=== PATIENT | female | born 1995 | race Caucasian/White ===

== ENCOUNTER 2019-02-01 10:19 | Inpatient (IN) | payer OTHER ==
[~2019-02-01] VITALS: Ht 160 cm; Wt 68.0 kg
[2019-02-01 10:27] VITALS: BP 141/94
--- NOTE | 2019-02-01 10:27 | NUR ---
Pt taken to bed 9.
--- NOTE | 2019-02-01 10:35 | NUR ---
BIB SELF. AAO X4 C/O RIGHT BREAST PAIN WITH REDNESS X 1 WEEK. PT WAS SEEN BY PCP AND WAS DX WITH MASTITIS AND HAS BEEN TAKING ABX SINCE SATURDAY BUT REPORTS A LOT OF PRESSURE TO RIGHT BREAST. POST 01/08/19. PT STATES CHILLS, NAUSEA, - VOMITING. ER TO EVALUATE PT.
--- NOTE | 2019-02-01 10:52 | NUR ---
Patient being evaluated by Dr. Vinson at bedside.
--- NOTE | 2019-02-01 10:55 | NUR ---
DR. DE GUZMAN BREAST EXAM AT BEDSIDE, CHAPERONED BY ME.
[2019-02-01] MEDS ORDERED: NACL 0.9% 1,000 ML IV SCH (10:57)
[2019-02-01] MEDS ORDERED: NAFCILLIN 2,000 MG in DEXTROSE 5% 100 ML IV ONE (11:00)
--- NOTE | 2019-02-01 11:10 | NUR ---
PT AAO X4. NO SIGNS AND SYMPTOMS OF DISTRESS NOTED. PT PLACED ON FULL LINER MAN. VSS.
[2019-02-01] MEDS ORDERED: NAFCILLIN 2,000 MG VIAL IV ONE (11:15)
[2019-02-01 11:27] LABS: BASOPHILS # (AUTO) 0.1 K/uL (0.00-0.22); BASOPHILS % (AUTO) 1.2 % (0.0-2.0); EOSINOPHILS # (AUTO) 0.1 K/uL (0-0.4); EOSINOPHILS % (AUTO) 0.5 % (0.0-4.0); HEMATOCRIT 39.8 % (36-48); HEMOGLOBIN 13.1 g/dL (12.0-16.0); LYMPHOCYTES # (AUTO) 1.2 K/uL (2.5-16.5); LYMPHOCYTES % (AUTO) 12.4 % (20.5-51.1); MEAN CORPUSCULAR HEMOGLOBIN 28 pg (27-31); MEAN CORPUSCULAR HGB CONC 33 g/dL (33-37); MEAN CORPUSCULAR VOLUME 83.7 fL (80-94); MONOCYTES # (AUTO) 0.6 K/uL (0.8-1.0); MONOCYTES % (AUTO) 6.3 % (1.7-9.3); NEUTROPHILS # (AUTO) 7.7 K/uL (1.8-7.7); NEUTROPHILS % (AUTO) 79.6 % (42.2-75.2); PLATELET COUNT (AUTO) 336 K/uL (140-450); RED BLOOD CELL COUNT(AUTO) 4.75 MIL/uL (4.20-5.40); RED CELL DISTRIBUTION WIDTH 14.6 % (11.6-13.7); WHITE BLOOD COUNT (AUTO) 9.7 K/uL (4.8-10.8)
--- NOTE | 2019-02-01 11:29 | NUR ---
RADIOLOGY AT BEDSIDE
--- NOTE | 2019-02-01 11:31 | NUR ---
ULTRASOUND AT BEDSIDE
[2019-02-01 11:34] LABS: ANION GAP 17.4 (8-16); CARBON DIOXIDE 24.6 mmol/L (21-32); CREATININE 0.7 mg/dL (0.6-1.3)
[2019-02-01 11:38] LABS: APPEARANCE,URINE CLEAR (CLEAR); BILIRUBIN,URINE NEGATIVE (NEGATIVE); BLOOD, URINE 1+ (NEGATIVE); COLOR,URINE YELLOW (YELLOW); LEUKOCYTE ESTERASE ,URINE 1+ (NEGATIVE); NITRITE, URINE NEGATIVE (NEGATIVE); PH,URINE 5.5 (5.0-9.0); UGLUCOSE NEGATIVE (NEGATIVE)
[2019-02-01 11:39] LABS: RBC,URINE 0-5 /HPF (0-5); WBC,URINE 0-5 /HPF (0-5)
[2019-02-01 11:49] LABS: ALBUMIN 3.7 g/dL (3.4-5.0); TOTAL BILIRUBIN 0.5 mg/dL (0.0-1.0)
--- NOTE | 2019-02-01 12:36 | NUR ---
Dr. Vinson re-evaluating patient at bedside.
[2019-02-01 13:10] VITALS: BP 107/75
--- NOTE | 2019-02-01 13:10 | NUR ---
RECEIVED ENDORSEMENT FROM ED NURSE ABDI. PATIENT IS AAOX4, SYRIAC SPEAKING. RESPIRATIONS ARE EVEN AND UNLABORED ON ROOM AIR. PATIENT DENIES PAIN AT A TOLERABLE LEVEL AT THIS TIME. LEFT AC 20G IV INTACT AND SL. PLAN OF CARE WAS REVIEWED WITH THE PATIENT. PATIENT VERBALIZED UNDERSTANDING. SAFETY MEASURES IN PLACE, CALL LIGHT WITHIN REACH.
--- NOTE | 2019-02-01 13:10 | NUR ---
Patient will be admitted to care of Dr. Cerda. Admitted to tele. Will go to room 105 a. Belongings list completed. Report to SAMIRA Dobbins.
[2019-02-01] MEDS ORDERED: DOCUSATE SODIUM 100 MG GELCAP PO PRN (13:45)
[2019-02-01] MEDS ORDERED: ACETAMINOPHEN 325 MG TAB PO PRN (13:45)
[2019-02-01] MEDS ORDERED: MORPHINE SULFATE 2 MG/ML SYR IVP PRN (13:45)
[2019-02-01] MEDS ORDERED: IBUPROFEN 600 MG TAB PO PRN (13:45)
[2019-02-01] MEDS: NACL 0.9% 1,000 ML IV SCH (14:04)
[2019-02-01 14:06] LABS: BARBITURATE, URINE NEG. ng/ml (NEG <=200); BENZODIAZEPINE, URINE NEG. ng/mL (NEG <=200); CANNABINOID, URINE NEG. ng/mL (NEG <=50); COCAINE, URINE NEG. ng/mL (NEG <=300); OPIATE, URINE NEG. ng/mL (NEG <=2000); PHENCYCLIDINE SCREEN,URINE NEG. ng/mL (NEG <=25)
[2019-02-01 14:11] LABS: PROTHROMBIN TIME 9.9 secs (10.8-13.4)
[2019-02-01 14:16] LABS: MAGNESIUM 2.1 mg/dL (1.8-2.4); THYROID STIMULATING HORMONE 0.42 uIU/mL (0.34-3.74)
--- NOTE | 2019-02-01 15:45 | NUR ---
OBTAINED BREAST PUMP FOR PATIENT FOR BREAST MILK SAMPLE. PATIENT IS RESTING IN BED. NO OTHER NEEDS AT THIS TIME, WILL CONTINUE TO MONITOR.
[2019-02-01 16:00] VITALS: BP 114/74
--- NOTE | 2019-02-01 17:04 | NUR ---
PATIENT RESTING IN BED. DENIES ANY PAIN. NO OTHER NEEDS AT THIS TIME, WILL CONTINUE TO MONITOR.
--- NOTE | 2019-02-01 19:23 | NUR ---
ENDORSED TO FIRMWARE MANAGER NURSE FOR CONTINUITY OF CARE. PATIENT IS STABLE AT THIS TIME.
--- NOTE | 2019-02-01 19:30 | NUR ---
RECEIVED BEDSIDE REPORT FROM DAY SHIFT RN, PATIENT IN BED WATCHING TV, NO SIGNS OF ACUTE DISTRESS. ON RA, V/S STABLE, NO FEVER AT THIS TIME, NOTED ABSCESS ON RIGHT BREAST, PATIENT DENIES PAIN. IV IN LEFT AC 20 G INFUSING NS AT 60 ML/HR. EXPLAINED PLAN OF CARE, CALL LIGHT WITHIN REACH.
--- NOTE | 2019-02-01 20:00 | NUR ---
DR VALLEJO AT BEDSIDE, EXAMINED PATIENT WHILE I WAS PRESENT, EXPLAINED RECOMMENDATIONS FOR SURGERY, EXPLAINED RISK AND BENEFITS, PATIENT IN AGREEMENT WITH PLAN OF CARE.
--- NOTE | 2019-02-01 21:00 | NUR ---
CONSENT FOR INCISION AND DRAINAGE SIGNED AND IN CHART
--- NOTE | 2019-02-01 22:02 | NUR ---
CALLED PHARMACY AND SPOKE WITH NASIR, ACCORDING TO HER SERGEYEN IS OKAY TO GIVEN WHILE BREAST FEEDING.
[2019-02-02] VITALS: BP 123/83
--- NOTE | 2019-02-02 00:14 | NUR ---
PRE OP CHECK LIST COMPLETED, PATIENT STARTED ON NPO STATUS
[2019-02-02] MEDS: NACL 0.9% 1,000 ML IV SCH ×2 (00:15→05:07)
--- NOTE | 2019-02-02 02:40 | NUR ---
PATIENT RESTING IN BED, NO SIGNS OF DISTRESS, WILL CONTINUE TO MONITOR
--- NOTE | 2019-02-02 03:52 | NUR ---
PATIENT AMBULATED TO RESTROOM HAD 1 BM.
--- NOTE | 2019-02-02 05:17 | NUR ---
STARTED NEW BAG NS AT 60 ML/HR
--- NOTE | 2019-02-02 05:23 | NUR ---
PATIENT REQUESTED NORCO WITH SMALL SIP OF WATER, CALLED RESIDENT STATED OKAY TO GIVE
[2019-02-02] MEDS: HYDROcodone/APAP 5/325 MG 1 TAB TAB PO PRN (05:27)
[2019-02-02 05:44] LABS: CARBON DIOXIDE 24.5 mmol/L (21-32); CREATININE 0.6 mg/dL (0.6-1.3); POTASSIUM 3.5 mmol/L (3.5-5.1)
[2019-02-02 05:46] LABS: CHOL/HDL RATIO 2.9 (1-4.5)
[2019-02-02 06:49] LABS: BASOPHILS % (AUTO) 0.5 % (0.0-2.0); EOSINOPHILS # (AUTO) 0.1 K/uL (0-0.4); EOSINOPHILS % (AUTO) 0.8 % (0.0-4.0); HEMATOCRIT 36.7 % (36-48); HEMOGLOBIN 11.9 g/dL (12.0-16.0); LYMPHOCYTES # (AUTO) 0.9 K/uL (2.5-16.5); LYMPHOCYTES % (AUTO) 9.9 % (20.5-51.1); MEAN CORPUSCULAR HEMOGLOBIN 27 pg (27-31); MEAN CORPUSCULAR HGB CONC 32 g/dL (33-37); MEAN CORPUSCULAR VOLUME 84.7 fL (80-94); MONOCYTES % (AUTO) 10.2 % (1.7-9.3); NEUTROPHILS # (AUTO) 7.5 K/uL (1.8-7.7); NEUTROPHILS % (AUTO) 78.6 % (42.2-75.2); PLATELET COUNT (AUTO) 309 K/uL (140-450); RED BLOOD CELL COUNT(AUTO) 4.34 MIL/uL (4.20-5.40); RED CELL DISTRIBUTION WIDTH 14.6 % (11.6-13.7); WHITE BLOOD COUNT (AUTO) 9.5 K/uL (4.8-10.8)
--- NOTE | 2019-02-02 07:13 | NUR ---
ENDORSED PATIENT TO DAY SHIFT NURSE, PATIENT STABLE.
--- NOTE | 2019-02-02 07:14 | NUR ---
RECEIVED ENDORSEMENT FROM EMERGENCY MEDICAL TECHNICIAN/DRIVER NURSE. PATIENT IS AAOX4, JAPANESE SPEAKING. RESPIRATIONS ARE EVEN AND UNLABORED ON ROOM AIR. PATIENT DENIES ANY PAIN AT THIS TIME. LEFT AC 20 G IV INTACT, PATENT, AND INFUSING IVF. PLAN OF CARE WAS REVIEWED WITH PATIENT. PATIENT VERBALIZED UNDERSTANDING. SAFETY MEASURES IN PLACE, CALL LIGHT WITHIN REACH.
[2019-02-02 08:00] VITALS: BP 107/62
--- NOTE | 2019-02-02 08:31 | NUR ---
PATIENT HAS BEEN SCREENED AND CATEGORIZED LOW NUTRITION RISK. PATIENT WILL BE SEEN WITHIN 7 DAYS OF ADMISSION. 02/08/[address]
--- NOTE | 2019-02-02 09:40 | NUR ---
PATIENT RESTING IN BED. FAMILY AT BEDSIDE. DENIES ANY PAIN AT THIS TIME. NO OTHER NEEDS AT THIS TIME, WILL CONTINUE TO MONITOR.
--- NOTE | 2019-02-02 10:15 | NUR ---
PATIENT LEFT FOR PROCEDURE. WILL CONTINUE TO MONITOR UPON RETURN TO UNIT.
[2019-02-02] MEDS ORDERED: DESFLURANE 240 ML BTL INH ONE (10:31)
[2019-02-02] MEDS ORDERED: KETOROLAC 30 MG/ML VIAL ONE (10:31)
[2019-02-02] MEDS ORDERED: PROPOFOL 200 MG/20 ML VIAL IV ONE (10:31)
[2019-02-02] MEDS ORDERED: ONDANSETRON 4 MG/2 ML VIAL ONE (10:31)
[2019-02-02] MEDS ORDERED: DEXAMETHASONE 4 MG/ML VIAL ONE (10:31)
[2019-02-02] MEDS ORDERED: BUPIVACAINE-MPF 0.25% 30 ML VIAL INJ ONE (10:40)
[2019-02-02] MEDS ORDERED: fentaNYL 0.05 MG/ML VIAL ONE (10:43)
[2019-02-02] MEDS ORDERED: HYDROmorphone 1 MG/ML AMP IVP PRN (10:55)
[2019-02-02] MEDS ORDERED: ONDANSETRON 4 MG/2 ML VIAL IVP PRN (10:55)
[2019-02-02] MEDS ORDERED: NAFCILLIN 2,000 MG in DEXTROSE 5% 100 ML IV SCH (11:00)
--- NOTE | 2019-02-02 12:00 | NUR ---
PATIENT RETURNED FROM PROCEDURE. PATIENT IS AAOX4. RESPIRATIONS ARE EVEN AND UNLABORED ON ROOM AIR. VS WERE BP 112/75, P 75, RR 16, O2 SAT 97% ON ROOM AIR. PATIENT REPORTS PAIN TO BE AT A TOLERABLE LEVEL AT THIS TIME. NO OTHER NEEDS, WILL CONTINUE TO MONITOR.
--- NOTE | 2019-02-02 12:15 | NUR ---
VS 101/65, 57, 16, 96% ON ROOM AIR, AND 96.7.
--- NOTE | 2019-02-02 13:00 | NUR ---
VS 106/62, 57, 16, 95% ON ROOM AIR, AND 96.6. PATIENT IS SLEEPING, EASILY AROUSABLE. NO OTHER NEEDS AT THIS TIME.
--- NOTE | 2019-02-02 14:32 | NUR ---
PATIENT SLEEPING, EASILY AROUSABLE. PATIENT DENIES ANY PAIN AT THIS TIME. NO OTHER NEEDS AT THIS TIME, WILL CONTINUE TO MONITOR.
[2019-02-02 16:00] VITALS: BP 115/76
--- NOTE | 2019-02-02 16:18 | NUR ---
PATIENT SLEEPING, FAMILY PRESENT AT BEDSIDE. PATIENT DENIES ANY PAIN. NO OTHER NEEDS AT THIS TIME, WILL CONTINUE TO MONITOR.
[2019-02-02] MEDS: NAFCILLIN 2,000 MG in DEXTROSE 5% 100 ML IV SCH (17:41)
--- NOTE | 2019-02-02 17:50 | NUR ---
ADMINISTERED SCHEDULED MEDICATIONS. PT TOLERATED WELL.
--- NOTE | 2019-02-02 19:17 | NUR ---
ENDORSED TO AGRICULTURE ENGINEER NURSE BELLE FOR CONTINUITY OF CARE. PATIENT IS STABLE AT THIS TIME.
--- NOTE | 2019-02-02 19:18 | NUR ---
RECEIVED REPORT FROM AM NURSE. PT SITTING IN BED, AWAKE, ALERT AND ORIENTED. ABLE TO VERBALIZE NEEDS. PT HAS DRESSING INTACT ON RIGHT BREAST. PT LEFT AC 20G INTACT AND INFUSING WELL. FAMILY AT BEDSIDE. SAFETY MEASURES IN PLACE. CALL LIGHT WITHIN REACH. WILL CONTINUE TO MONITOR.
--- NOTE | 2019-02-02 20:21 | NUR ---
patient did incentive spirometer at 10 breaths at 1000cc. very good effort
--- NOTE | 2019-02-02 21:35 | NUR ---
PT ASKED FOR HELP WITH PUMPING OF RIGHT BREAST. DRESSING WAS LIFTED FROM THE BOTTOM TO EXPOSE NIPPLE. REST OF DRESSING INTACT. AFTER PUMPING SAMPLE OF BREAST MILK WAS TAKEN AND SENT TO LAB FOR CULTURE.
[2019-02-03 00:02] VITALS: BP 106/67
[2019-02-03] MEDS: NAFCILLIN 2,000 MG in DEXTROSE 5% 100 ML IV SCH ×5 (00:14→23:38)
--- NOTE | 2019-02-03 00:20 | NUR ---
ROUNDED ON PT. PT AWAKE SITTING IN BED WATCHING TV. PT WAS BROUGHT RUDYING AND ANUPAM, PER REQUEST. CALL LIGHT WITHIN REACH.
--- NOTE | 2019-02-03 02:10 | NUR ---
ROUNDED ON PT. PT IN BED WATCHING TV. NO C/O DISCOMFORT.
--- NOTE | 2019-02-03 05:12 | NUR ---
ANTIBIOTICS HUNG. PT SLEEPING IN BED BUT EASILY AROUSABLE. NO C/O DISCOMFORT. CALL LIGHT WITHIN REACH.
[2019-02-03 07:09] LABS: MAGNESIUM 2.1 mg/dL (1.8-2.4); PHOSPHORUS 4.3 mg/dL (2.5-4.9)
[2019-02-03 07:10] LABS: ANION GAP 13.9 (8-16); CARBON DIOXIDE 24.6 mmol/L (21-32); CREATININE 0.6 mg/dL (0.6-1.3); POTASSIUM 3.5 mmol/L (3.5-5.1)
--- NOTE | 2019-02-03 07:10 | NUR ---
ENDORSED PT TO AM NURSE. PT IN STABLE CONDITION.
--- NOTE | 2019-02-03 07:11 | NUR ---
RECEIVED BEDSIDE REPORT FROM SUPERVISOR ROLLER SHOP NURSE. PATIENT ON MED SURGE FLOOR AND STANDARD PRECAUTIONS IN PLACE. PATIENT AAOX4, ON ROOM AIR, NO DISTRESS NOTED, AND AMBULATORY. R ABSCESS S/P I&D DRESSING CLEAN DRY AND INTACT. IV ON L AC 20G INFUSING NS AT 60, IV PATENT AND INTACT. BED IN LOW POSITION, CALL LIGHT WITHIN REACH, SIDE RAILS X2 UP
[2019-02-03 07:20] LABS: BASOPHILS % (AUTO) 0.4 % (0.0-2.0); EOSINOPHILS # (AUTO) 0.1 K/uL (0-0.4); EOSINOPHILS % (AUTO) 1.8 % (0.0-4.0); HEMATOCRIT 32.9 % (36-48); HEMOGLOBIN 10.9 g/dL (12.0-16.0); LYMPHOCYTES # (AUTO) 1.6 K/uL (2.5-16.5); LYMPHOCYTES % (AUTO) 23.3 % (20.5-51.1); MEAN CORPUSCULAR HEMOGLOBIN 28 pg (27-31); MEAN CORPUSCULAR HGB CONC 33 g/dL (33-37); MEAN CORPUSCULAR VOLUME 84.1 fL (80-94); MONOCYTES # (AUTO) 0.8 K/uL (0.8-1.0); MONOCYTES % (AUTO) 11.1 % (1.7-9.3); NEUTROPHILS # (AUTO) 4.4 K/uL (1.8-7.7); NEUTROPHILS % (AUTO) 63.4 % (42.2-75.2); PLATELET COUNT (AUTO) 294 K/uL (140-450); RED BLOOD CELL COUNT(AUTO) 3.91 MIL/uL (4.20-5.40); RED CELL DISTRIBUTION WIDTH 14.6 % (11.6-13.7)
[2019-02-03 08:00] VITALS: BP 107/71
--- NOTE | 2019-02-03 09:14 | NUR ---
PATIENT WATCHING TV, ON ROOM AIR, NO DISTRESS NOTED
[2019-02-03] MEDS ORDERED: ACET-9525 PO (10:10)
[2019-02-03] MEDS ORDERED: DOCU-299 PO (10:10)
[2019-02-03] MEDS ORDERED: ACET-1182 PO (10:10)
--- NOTE | 2019-02-03 11:01 | NUR ---
PATIENT AMBULATED TO SINK TO BRUSH TEETH, BUFFING MACHINE OPERATOR SEMIAUTOMATIC CHANGING BED LINENS
--- NOTE | 2019-02-03 11:36 | NUR ---
ADMINISTERED SCHEDULED MED. PATIENT TOLERATED WELL. FAMILY AT BEDSIDE
--- NOTE | 2019-02-03 15:40 | NUR ---
DR. VALLEJO AT BEDSIDE Addendum: 02/03/19 at 1607 by Kristina Coburn RN DR. VALLEJO ORDERED MORPHINE 4 MG IVP PRIOR TO DRESSING CHANGE. STATED HE WILL CHANGE THE DRESSING WITH ME LATER AFTER PATIENT MEDICATED
[2019-02-03] MEDS ORDERED: MORPHINE SULFATE 4 MG/ML SYR IVP SCH (15:46)
[2019-02-03] MEDS: NACL 0.9% 1,000 ML IV SCH (15:53)
[2019-02-03 16:00] VITALS: BP 116/77
--- NOTE | 2019-02-03 16:07 | NUR ---
DR. VALLEJO CHANGED DRESSING ON R BREAST WITH ME AT BEDSIDE, PATIENT TOLERATED WELL
[2019-02-03] MEDS: HYDROcodone/APAP 5/325 MG 1 TAB TAB PO PRN (17:04)
--- NOTE | 2019-02-03 19:05 | NUR ---
BEDSIDE REPORT GIVEN TO SAMIRA NICOLAS. PATIENT ENDORSED IN STABLE CONDITION
--- NOTE | 2019-02-03 19:06 | NUR ---
RECEIVED REPORT FROM DAY SHIFT NURSE FELICITY-RN AT BEDSIDE. PT RESTING IN BED WITH BOYFRIEND AT BEDSIDE. PT AOX4, ON ROOM AIR WITH LEFT AC #20 RUNNING NS 0.9% @60ML/HR. S/P RIGHT BREAST I&D ON 02/02, FIRST DRESSING CHANGE DONE BY DR. VALLEJO TODAY. MODERATE SANGUINEOUS DRAINAGE ON BANDAGE. DISCUSSED PLAN OF CARE AND PT VERBALIZED UNDERSTANDING. NO S/S OF RESPIRATORY DISTRESS OR DISCOMFORT NOTED AT THIS TIME. BED IN LOWEST POSITION, BED BREAKS ON, BOTH SIDE RAILS UP. BEDSIDE TABLE AND CALL LIGHT ARE WITHIN REACH. WILL CONTINUE TO MONITOR.
[2019-02-03 20:00] VITALS: BP 125/75
--- NOTE | 2019-02-03 20:00 | NUR ---
VITAL SIGNS TAKEN AND TOLERATED WELL. NO S/S OF RESPIRATORY DISTRESS OR DISCOMFORT NOTED AT THIS TIME. WILL CONTINUE TO MONITOR.
--- NOTE | 2019-02-03 22:00 | NUR ---
PT CONTINUES TO REST IN BED. NO S/S OF RESPIRATORY DISTRESS OR DISCOMFORT NOTED AT THIS TIME. WILL CONTINUE TO MONITOR.
--- NOTE | 2019-02-03 23:38 | NUR ---
SCHEDULED MEDICATION UNIPEN GIVEN AND TOLERATED WELL. NO S/S OF RESPIRATORY DISTRESS OR DISCOMFORT NOTED AT THIS TIME. WILL CONTINUE TO MONITOR.
[2019-02-04] VITALS: BP 118/81
--- NOTE | 2019-02-04 | NUR ---
VITAL SIGNS TAKEN AND TOLERATED WELL. NO S/S OF RESPIRATORY DISTRESS OR DISCOMFORT NOTED AT THIS TIME. WILL CONTINUE TO MONITOR.
[2019-02-04] MEDS: NACL 0.9% 1,000 ML IV SCH (00:39)
--- NOTE | 2019-02-04 00:39 | NUR ---
NEW BAG OF IVF HUNG AND TOLERATED WELL. NO S/S OF RESPIRATORY DISTRESS OR DISCOMFORT NOTED AT THIS TIME. WILL CONTINUE TO MONITOR.
--- NOTE | 2019-02-04 02:00 | NUR ---
PT CONTINUES TO REST IN BED. NO S/S OF RESPIRATORY DISTRESS OR DISCOMFORT NOTED AT THIS TIME. WILL CONTINUE TO MONITOR.
--- NOTE | 2019-02-04 04:00 | NUR ---
PT CONTINUES TO SLEEP IN BED. NO S/S OF RESPIRATORY DISTRESS OR DISCOMFORT NOTED AT THIS TIME. WILL CONTINUE TO MONITOR.
[2019-02-04] MEDS: NAFCILLIN 2,000 MG in DEXTROSE 5% 100 ML IV SCH (05:28)
--- NOTE | 2019-02-04 05:28 | NUR ---
SCHEDULED MEDICATION UNIPEN GIVEN AND TOLERATED WELL. NO S/S OF RESPIRATORY DISTRESS OR DISCOMFORT NOTED AT THIS TIME. WILL CONTINUE TO MONITOR.
[2019-02-04 06:52] LABS: BASOPHILS % (AUTO) 0.7 % (0.0-2.0); EOSINOPHILS # (AUTO) 0.2 K/uL (0-0.4); EOSINOPHILS % (AUTO) 3.7 % (0.0-4.0); HEMATOCRIT 32.4 % (36-48); HEMOGLOBIN 10.5 g/dL (12.0-16.0); LYMPHOCYTES # (AUTO) 1.6 K/uL (2.5-16.5); LYMPHOCYTES % (AUTO) 29.2 % (20.5-51.1); MEAN CORPUSCULAR HEMOGLOBIN 27 pg (27-31); MEAN CORPUSCULAR HGB CONC 33 g/dL (33-37); MEAN CORPUSCULAR VOLUME 83.6 fL (80-94); MONOCYTES # (AUTO) 0.6 K/uL (0.8-1.0); MONOCYTES % (AUTO) 11.2 % (1.7-9.3); NEUTROPHILS # (AUTO) 3.1 K/uL (1.8-7.7); NEUTROPHILS % (AUTO) 55.2 % (42.2-75.2); PLATELET COUNT (AUTO) 287 K/uL (140-450); RED BLOOD CELL COUNT(AUTO) 3.88 MIL/uL (4.20-5.40); RED CELL DISTRIBUTION WIDTH 14.5 % (11.6-13.7); WHITE BLOOD COUNT (AUTO) 5.6 K/uL (4.8-10.8)
--- NOTE | 2019-02-04 07:04 | NUR ---
ENDORSED PT CARE TO DAY SHIFT NURSE FELICITY TY FOR CONTINUITY OF CARE.
--- NOTE | 2019-02-04 07:05 | NUR ---
RECEIVED BEDSIDE REPORT FROM SAMIRA NICOLAS. PATIENT ON MED SURGE FLOOR AND STANDARD PRECAUTIONS IN PLACE. PATIENT ON ROOM AIR, NO DISTRESS NOTED, AAOX4, AMBULATORY AND CONTINENT. R BREAST DRESSING CLEAN DRY AND INTACT. IV ON L AC 20G INFUSING NS AT 60, IV PATENT AND INTACT. BED IN LOW POSITION, CALL LIGHT WITHIN REACH, SIDE RAILS X2 UP
[2019-02-04 07:08] LABS: MAGNESIUM 1.9 mg/dL (1.8-2.4); PHOSPHORUS 4.5 mg/dL (2.5-4.9)
[2019-02-04 07:11] LABS: ANION GAP 11.3 (8-16); CARBON DIOXIDE 26.3 mmol/L (21-32); CREATININE 0.6 mg/dL (0.6-1.3); POTASSIUM 3.6 mmol/L (3.5-5.1)
[2019-02-04 08:00] VITALS: BP 116/78
--- NOTE | 2019-02-04 09:00 | NUR ---
PATIENT SITTING UP IN BED, ON ROOM AIR, NO DISTRESS NOTED
[2019-02-04] MEDS ORDERED: CLIN300C2 PO (11:07)
[2019-02-04] MEDS ORDERED: LACT10CA1 PO (11:07)
--- NOTE | 2019-02-04 11:10 | NUR ---
PATIENT COMPLAINING OF PAIN AT L AC IV SITE. STUDENT INSERTED NEW IV ON R H 22G, IV PATENT AND INTACT. DC'd IV ON L AC SINCE PATIENT COMPLAINED OF PAIN
[2019-02-04] MEDS ORDERED: ACET-1182 PO (11:18)
[2019-02-04] MEDS ORDERED: IBUP-2213 PO (11:20)
--- NOTE | 2019-02-04 12:57 | NUR ---
wOUND CARE EVAL. PENDING, PRIMARY RN REQUESTING PAIN MEDICATION FROM DOCTOR AND PENDING ORDER.
--- NOTE | 2019-02-04 13:28 | NUR ---
Light Cleaner Note: Per Software Integrator Brijesh from [facility] , they are contracted with [facility] and [facility] can call to obtain home health authorization. Inquiry was faxed to [facility]. Per Shira from [facility] patient has to pay co-pay, which is 20% of each home health visit. I met with patient at bedside. I relayed information Shira provided me with regarding co-pay to patient. I offered to request Shira from [facility] to contact her and provide her with more details regarding co-pay. She agreed. She stated she can be reached at . Per Shira, she will contact patient and discuss details about co-pay, I provided her with patient's phone number. I requested for Shira to call me back and provide with an update. I received a call from Shira she stated patient has agreed to pay for co-pay, which is about $30 per visit. Per Shira, they will send a nurse to patient's home and is aware patient will be discharge today. I provided Shira with the following number to obtain home health authorization .
[2019-02-04] MEDS: HYDROcodone/APAP 5/325 MG 1 TAB TAB PO PRN (13:31)
--- NOTE | 2019-02-04 13:41 | NUR ---
WOUND CARE NURSE, EDWARD AT BEDSIDE
--- NOTE | 2019-02-04 14:15 | NUR ---
WOUND CARE EVALUATION NOTES: REASON FOR EVALUATION: S/P I&D RIGHT BREAST SURGICAL WOUND SKIN ASSESSMENT DONE WITH BOYFRIEND AT BED SIDE ON THIS FEMALE PATIENT ADMITTED FROM HOME TO [facility], WITH INITIAL DIAGNOSIS OF RIGHT BREAST ABSCESS. WOUND CARE TEACHING DONE TO PT. AND BOYFRIEND. ALL QUESTIONS ANSWERED. PT IS ABLE TO VERBALIZE UNDERSTANDING. ALL POC DISCUSSED WITH PRIMARY RN. INTEGUMENTARY: - S/P I&D SURGICAL WOUND TO RIGHT BREAST, 3X7X1.5CM 100% GRANULATING TISSUE MODERATE AMOUNT SEROSANGUINEOUS DRAINAGE, NO ODOR, WOUND EDGE FLAT, NO UNDERMINING NO TUNNELING, IRA WOUND SKIN INTACT. RECOMMENDATIONS: -CLEANSE RIGHT BREAST SURGICAL WOUND WITH NS. PAT DRY APPLY ADAPTIC DRESSING TO WOUND BED, AND COVER WITH DRY 4X4 GAUZES AND ABD PAD, SECURE WITH TAPE QD AND PRN IF SOILING. -FOLLOW UP WITH SURGEON OR PRIMARY PHYSICIAN OUT PATIENT 7-10 DAYS AFTER DISCHARGE -MAY DISCHARGE PT WITH ADAPTIC DRESSING TREATMENT SUPPLIES RECOMMENDATIONS DISCUSSED WITH PRIMARY RN PLEASE CONTACT WOUND CARE NURSE FOR ANY CONCERNS AND CHANGES IN WOUND CONDITION
[2019-02-05] MEDS ORDERED: GAUZE TP SCH (13:00)
== END 2019-02-04 14:15 | disposition home or self-care (01) | DRG 584 ==
LOC: MED 10:19 → MTU 12:27
PROVIDERS: ADMIT General Practice; ATTEND General Practice
PROC: 0HBT0ZX Excision of Right Breast, Open Approach, Diagnostic (ICD-10-PCS; 2019-02-02)
PROC: 0HBT0ZZ Excision of Right Breast, Open Approach (ICD-10-PCS; principal; 2019-02-02 10:30)
DX: N61.1 Abscess of the breast and nipple (principal); N39.0 Urinary tract infection, site not specified; I10 Essential (primary) hypertension; Z85.3 Personal history of malignant neoplasm of breast; Z80.3 Family history of malignant neoplasm of breast
CPT/HCPCS: 36415; 71045; 76641; 80048; 80053; 80305; 81001; 83036; 83605; 83690; 83735; 84100; 84134; 84443; 85025; 85610; 85730; 87040; 87070; 87075; 87081; 87086; 87186; 87205; 88304; 88313; 88342; 96361; 96365; 99285; J1100; J1885; J2270; J2405; J2704; J3010; J3490; J7030; J7060; Q0092